=== PATIENT | male | born 1965 | race Caucasian/White ===

== ENCOUNTER 2016-08-16 10:32 | Emergency (ER) | payer SELFPAY ==
[~2016-08-16] VITALS: Ht 175.3 cm; Wt 71.0 kg
[~2016-08-16 10:32] MED LIST: SULF1TAB47 PO; Z.0.NO CURRENT MEDS
[2016-08-16 10:45] VITALS: BP 175/103; PULSE 67; RESP 16; TEMP 98.4; O2SAT 99
[2016-08-16] MEDS ORDERED: LIDOCAINE 1%/EPINEPHrine 1:100,000 SOLN 20 ML VIAL INFIL ONE (11:15)
[2016-08-16] MEDS ORDERED: LIDOCAINE 1%/EPINEPHrine 1:100,000 SOLN 30 ML VIAL INFIL ONE (11:16)
--- NOTE | 2016-08-16 11:19 | PD ---
HPI Chief Complaint: Skin Problem Time Seen by Provider: 11:08 Travel History International Travel<30 days: No Contact w/Intl Traveler<30days: No Traveled to known affect area: No History of Present Illness HPI 51-year-old male presents emergency department for evaluation of a possible abscess on his back. He reports history of multiple inflamed/infected sebaceous cysts in the past. He reports this cyst has been present on his back for "years". Over the last month areas become increasingly more painful and red prompting his visit for evaluation today. He denies fevers, chills, nausea or vomiting. He reports the pain is localized to the area of the abscess, nonradiating, worse with palpation 4/10 severity. PFSH Past Medical History Medical History: Denies Significant Hx Hypertension: Yes (untreated) Immunizations Current: Yes Tetanus Vaccination: > 5 Years Influenza Vaccination: No Past Surgical History Surgical History: No Previous Surgery Social History Alcohol Use: Yes (~2-3 x weekly) Tobacco Use: No Substance Use: No Allergies-Medications (Allergen,Severity, Reaction): Coded Allergies: No Known Allergies (Unverified , 08/16/16) Reported Meds & Prescriptions Reported Meds & Active Scripts Active Bactrim DS (Sulfamethoxazole-Trimethoprim) 800-160 Mg Tab 1 Tab PO BID Review of Systems Except as stated in HPI: all other systems reviewed are Neg Physical Exam Narrative GENERAL: Well-nourished, well-developed patient. SKIN: Focused skin assessment warm/dry. 4 x 4 centimeter inflamed/erythematous fluctuant sebaceous cyst on right upper back. No surrounding cellulitis. HEAD: Normocephalic. EYES: No scleral icterus. No injection or drainage. NECK: Supple, trachea midline. No JVD or lymphadenopathy. CARDIOVASCULAR: Regular rate and rhythm without murmurs, gallops, or rubs. RESPIRATORY: Breath sounds equal bilaterally. No accessory muscle use. GASTROINTESTINAL: Abdomen soft, non-tender, nondistended. MUSCULOSKELETAL: No cyanosis, or edema. BACK: Nontender without obvious deformity. No CVA tenderness. Data Data Last Documented VS Vital Signs Date Time Temp Pulse Resp B/P Pulse Ox O2 Delivery O2 Flow Rate FiO2 08/16/16 10:45 98.4 67 16 175/103 99 Orders Lidocai-Epi 1%-1:100,000 Inj (Xylocaine- (08/16/16 11:16) [facility] Medical Decision Making Medical Screen Exam Complete: Yes Emergency Medical Condition: Yes Differential Diagnosis Inflamed sebaceous cyst, abscess Narrative Course 51-year-old male presents emergency department for evaluation of a painful sebaceous cyst on his back. He reports over the last month area has become increasingly more painful and red pumping his visit for evaluation today. He denies fever or chills. On exam he has a large 4 cm x 4 cm fluctuant erythematous abscess/sebaceous cyst with no surrounding cellulitis. I&D will be performed Incision and drainage performed. Large amount of purulent drainage expressed. Patient tolerated well. Patient will be prescribed Bactrim DS and instructed to follow up with his primary doctor for recheck. Wound care instructions discussed with patient. Procedures Procedure Narrative Area prepped with Betadine. Infiltrated with 1% lidocaine with epi. Small incision made with #11 blade. Large amount of purulent drainage expressed. Patient tolerated procedure well Diagnosis Primary Impression: Inflamed sebaceous cyst Referrals: [facility] Patient Instructions: Abscess Incision and Drainage (ED), General Instructions Scripts Sulfamethoxazole-Trimethoprim (Bactrim DS)800-160 Mg Tab1 Tab PO BID #20 TAB Prov:Charlee Verduzco 08/16/16 Disposition: 01 DISCHARGE HOME Condition: Stable Charlee Verduzco Aug 16, 2016 11:19
[2016-08-16] MEDS ORDERED: BACT800T5 PO (11:43)
== END 2016-08-16 11:49 | disposition home or self-care (01) ==
LOC: PHEFT 10:32
DX: L72.3 Sebaceous cyst (principal); I10 Essential (primary) hypertension
CPT/HCPCS: 10060

== ENCOUNTER 2016-08-19 10:53 | Emergency (ER) | payer SELFPAY ==
[~2016-08-19] VITALS: Ht 175.3 cm; Wt 71.0 kg
[~2016-08-19 10:53] MED LIST changes: +BACT800T5 PO; -SULF1TAB47 PO; -Z.0.NO CURRENT MEDS
[2016-08-19 10:58] VITALS: BP 151/98; PULSE 60; RESP 16; TEMP 98.2; O2SAT 98
--- NOTE | 2016-08-19 11:51 | PD ---
HPI Chief Complaint: Wound/Suture/Staple Re-Check Time Seen by Provider: 11:47 Travel History International Travel<30 days: No Contact w/Intl Traveler<30days: No Traveled to known affect area: No History of Present Illness HPI 51-year-old male here for wound check. Patient seen here approximately 2-3 days ago with a infected sebaceous cyst on the back that was incised and drained. Patient states that it still been draining. Compliant with antibiotics. No pain, fevers or chills at this time. PFSH Past Medical History Hypertension: Yes (untreated) Immunizations Current: Yes Tetanus Vaccination: > 5 Years Influenza Vaccination: No Past Surgical History Surgical History: No Previous Surgery Social History Alcohol Use: Yes (2-3 X's/week) Tobacco Use: No Substance Use: No Allergies-Medications (Allergen,Severity, Reaction): Coded Allergies: No Known Allergies (Unverified , 08/19/16) Reported Meds & Prescriptions Reported Meds & Active Scripts Active Bactrim DS (Sulfamethoxazole-Trimethoprim) 800-160 Mg Tab 1 Tab PO BID Review of Systems Except as stated in HPI: all other systems reviewed are Neg Physical Exam Narrative GENERAL: Well-appearing male in no acute distress SKIN: Focused skin assessment warm/dry. Sebaceous cyst on the back which is still draining purulent fluid, able to express this minimal amount HEAD: Normocephalic. EYES No scleral icterus. No injection or drainage. ENT: Mucous membranes pink and moist. CARDIOVASCULAR: Regular rate and rhythm. RESPIRATORY: No accessory muscle use. MUSCULOSKELETAL: Normal gait NEUROLOGICAL: Awake and alert. Normal speech. PSYCHIATRIC: Appropriate mood and affect; insight and judgment normal. Data Data Last Documented VS Vital Signs Date Time Temp Pulse Resp B/P Pulse Ox O2 Delivery O2 Flow Rate FiO2 08/19/16 10:58 98.2 60 16 151/98 98 MDM Medical Decision Making Medical Screen Exam Complete: Yes Emergency Medical Condition: Yes Medical Record Reviewed: Yes Differential Diagnosis 51-year-old male here for wound check. Exam shows persistent purulent fluid and this is infected sebaceous cyst. Able to express this but no surrounding induration. He is draining a small amount of purulence, instructed to continue wound dressing changes. Narrative Course Given referral to follow-up with primary care. Diagnosis Primary Impression: Inflamed sebaceous cyst Referrals: [facility] as needed Additional Instructions: Continue antibiotics. Dressing change every other day Med/Other Pt SpecificInfo: No Change to Meds Disposition: 01 DISCHARGE HOME Condition: Stable Delaney Garsia MD Aug 19, 2016 11:51
== END 2016-08-19 11:55 | disposition home or self-care (01) ==
LOC: PHEFT 10:53
DX: Z09 Encounter for follow-up examination after completed treatment for conditions other than malignant neoplasm (principal); L72.3 Sebaceous cyst; L08.9 Local infection of the skin and subcutaneous tissue, unspecified; I10 Essential (primary) hypertension
CPT/HCPCS: 99282